=== PATIENT | female | born 1930 | race Native Hawaiian/Other Pacific Islander ===

== ENCOUNTER 2019-04-11 08:50 | Emergency (ER) | payer OTHER ==
[~2019-04-11] VITALS: Ht 162.6 cm; Wt 66.2 kg
[2019-04-11 08:59] VITALS: BP 195/92; TEMP 98.1
== END 2019-04-11 11:15 | disposition home health service (06) ==
LOC: ED 08:50
DX: S02.2XXA Fracture of nasal bones, initial encounter for closed fracture (principal); S09.8XXA Other specified injuries of head, initial encounter; S83.8X1A Sprain of other specified parts of right knee, initial encounter; S63.591A Other specified sprain of right wrist, initial encounter; W01.0XXA Fall on same level from slipping, tripping and stumbling without subsequent striking against object, initial encounter; Y92.89 Other specified places as the place of occurrence of the external cause
CPT/HCPCS: 96372; 99283; J1885; J7040

== ENCOUNTER 2019-08-07 14:37 | Outpatient (CLI) | payer OTHER ==
[2019-08-07 14:49] LABS: PLATELET COUNT 226 K/uL (152-353)
== END 2019-08-07 19:10 | disposition home or self-care (01) ==
LOC: LAB 14:37
PROVIDERS: Nurse Practitioner Family
DX: Z00.00 Encounter for general adult medical examination without abnormal findings (principal); I10 Essential (primary) hypertension; E55.9 Vitamin D deficiency, unspecified; L71.8 Other rosacea; Z79.899 Other long term (current) drug therapy; R53.83 Other fatigue; R53.81 Other malaise
CPT/HCPCS: 80053; 80061; 82306; 83036; 84439; 84443; 84481; 85027

== ENCOUNTER 2019-08-31 16:47 | Observation (INO) | payer OTHER ==
[2019-08-31] VITALS (8 sets, daily range): BP systolic 171–187; BP diastolic 54–78; TEMP 98.2–98.6; Ht 157.5 cm; Wt 65.4 kg
[~2019-08-31] VITALS: Ht 157.5 cm; Wt 65.4 kg
[2019-08-31 17:36] LABS: PLATELET COUNT 252 K/uL (152-353)
[2019-08-31 17:44] LABS: POTASSIUM 3.8 mmol/L (3.6-5.2)
[2019-08-31 17:53] LABS: PARTIAL THROMBOPLASTIN TIME 22.7 SECONDS (24.5-33.6)
[2019-09-01] VITALS: BP 147/89; TEMP 98.9
[2019-09-01 04:00] VITALS: BP 172/80; TEMP 97.9
[2019-09-01 08:07] VITALS: BP 152/48; TEMP 97.4
== END 2019-09-01 10:55 | disposition home or self-care (01) ==
LOC: ED 16:51 → MED/SURG 19:50
PROVIDERS: Family Medicine; ADMIT Internal Medicine Endocrinology, Diabetes & Metabolism
DX: G45.8 Other transient cerebral ischemic attacks and related syndromes (principal); R53.1 Weakness; R47.81 Slurred speech; I10 Essential (primary) hypertension; M79.609 Pain in unspecified limb
CPT/HCPCS: 80053; 81000; 85027; 85610; 85730; 93005; 99220; 99283; G0378; J1650

== ENCOUNTER 2020-01-26 22:57 | Emergency (ER) | payer OTHER ==
[~2020-01-26] VITALS: Ht 157.5 cm; Wt 65.3 kg
[2020-01-27 03:32] VITALS: BP 164/57; TEMP 98.4
== END 2020-01-27 03:39 | disposition short-term general hospital (02) ==
LOC: ED 22:57
DX: S72.012A Unspecified intracapsular fracture of left femur, initial encounter for closed fracture (principal); W18.39XA Other fall on same level, initial encounter; Y92.098 Other place in other non-institutional residence as the place of occurrence of the external cause
CPT/HCPCS: 96365; 96374; 96375; 99285; J1170

== ENCOUNTER 2020-04-03 19:50 | Emergency (ER) | payer OTHER ==
[~2020-04-03] VITALS: Ht 157.5 cm; Wt 61.2 kg
[2020-04-03 21:56] VITALS: BP 151/76; TEMP 98.1
== END 2020-04-03 21:57 | disposition home or self-care (01) ==
LOC: ED 19:50
DX: S60.222A Contusion of left hand, initial encounter (principal); S60.212A Contusion of left wrist, initial encounter; S50.12XA Contusion of left forearm, initial encounter; S60.221A Contusion of right hand, initial encounter; S60.512A Abrasion of left hand, initial encounter; S60.812A Abrasion of left wrist, initial encounter; S50.812A Abrasion of left forearm, initial encounter; S60.511A Abrasion of right hand, initial encounter; S00.83XA Contusion of other part of head, initial encounter; S00.81XA Abrasion of other part of head, initial encounter; S09.8XXA Other specified injuries of head, initial encounter; W01.198A Fall on same level from slipping, tripping and stumbling with subsequent striking against other object, initial encounter; Y92.098 Other place in other non-institutional residence as the place of occurrence of the external cause
CPT/HCPCS: 90471; 90715; 96365; 96375; 99284; J0690; J2270; J2405; J7040

== ENCOUNTER 2021-02-09 18:44 | Emergency (ER) | payer OTHER ==
[~2021-02-09] VITALS: Ht 157.5 cm; Wt 60.3 kg
[2021-02-09 20:56] VITALS: BP 155/93; TEMP 98.5
== END 2021-02-09 20:56 | disposition home or self-care (01) ==
LOC: ED 18:44
PROC: 0CQ00ZZ Repair Upper Lip, Open Approach (ICD-10-PCS; principal; 2021-02-09)
DX: S01.511A Laceration without foreign body of lip, initial encounter (principal); S00.83XA Contusion of other part of head, initial encounter; W01.198A Fall on same level from slipping, tripping and stumbling with subsequent striking against other object, initial encounter; Y92.098 Other place in other non-institutional residence as the place of occurrence of the external cause
CPT/HCPCS: 90471; 90715; 96372; 99283; 99284; J2001

== ENCOUNTER 2021-02-17 17:12 | Emergency (ER) | payer OTHER ==
[~2021-02-17] VITALS: Ht 157.5 cm; Wt 60.3 kg
[2021-02-17 17:50] VITALS: BP 161/69; TEMP 97.8
== END 2021-02-17 17:50 | disposition home or self-care (01) ==
LOC: ED 17:12
DX: Z48.02 Encounter for removal of sutures (principal)

== ENCOUNTER 2021-02-18 15:12 | Outpatient (CLI) | payer OTHER | END 2021-02-18 19:32 | disposition home or self-care (01) | LOC: RAD 15:12 | PROVIDERS: ATTEND Internal Medicine | DX: M25.532 Pain in left wrist (principal); R60.0 Localized edema ==

== ENCOUNTER 2021-05-06 18:44 | Emergency (ER) | payer OTHER ==
[~2021-05-06] VITALS: Ht 157.5 cm; Wt 60.3 kg
[2021-05-06 19:15] LABS: PLATELET COUNT 251 K/uL (152-353)
[2021-05-06 19:25] LABS: POTASSIUM 3.4 mmol/L (3.6-5.2)
[2021-05-06 19:34] LABS: PARTIAL THROMBOPLASTIN TIME 24.3 SECONDS (24.5-33.6)
[2021-05-06 21:45] VITALS: BP 140/70; TEMP 97.8
== END 2021-05-06 21:45 | disposition short-term general hospital (02) ==
LOC: ED 18:44
PROVIDERS: Hospitalist
PROC: 0T9B70Z Drainage of Bladder with Drainage Device, Via Natural or Artificial Opening (ICD-10-PCS; principal; 2021-05-06)
DX: S09.8XXA Other specified injuries of head, initial encounter (principal); S06.0X0A Concussion without loss of consciousness, initial encounter; S00.83XA Contusion of other part of head, initial encounter; S01.81XA Laceration without foreign body of other part of head, initial encounter; S32.592A Other specified fracture of left pubis, initial encounter for closed fracture; K44.9 Diaphragmatic hernia without obstruction or gangrene; R56.9 Unspecified convulsions; Z11.52 Encounter for screening for COVID-19; W01.198A Fall on same level from slipping, tripping and stumbling with subsequent striking against other object, initial encounter; Y92.512 Supermarket, store or market as the place of occurrence of the external cause
CPT/HCPCS: 36415; 51702; 80053; 80320; 81000; 82948; 85027; 85610; 85730; 87635; 93005; 96360; 96361; 96365; 96366; 99285; J0690; J2060; J2405; U0003

== ENCOUNTER 2021-07-07 15:26 | Emergency (ER) | payer OTHER ==
[~2021-07-07] VITALS: Ht 157.5 cm; Wt 55.8 kg
[2021-07-07 21:15] VITALS: BP 134/73; TEMP 97.2
== END 2021-07-07 21:15 | disposition home or self-care (01) ==
LOC: ED 15:26
DX: S51.812A Laceration without foreign body of left forearm, initial encounter (principal); W18.39XA Other fall on same level, initial encounter; Y93.01 Activity, walking, marching and hiking; Y92.098 Other place in other non-institutional residence as the place of occurrence of the external cause
CPT/HCPCS: 99283

== ENCOUNTER 2021-09-14 17:09 | Emergency (ER) | payer OTHER ==
[~2021-09-14] VITALS: Ht 157.5 cm; Wt 55.8 kg
[2021-09-14 17:43] LABS: PLATELET COUNT 257 K/uL (152-353)
[2021-09-14 17:50] LABS: POTASSIUM 3.8 mmol/L (3.6-5.2)
[2021-09-14 20:01] VITALS: BP 167/70; TEMP 98
== END 2021-09-14 20:05 | disposition home or self-care (01) ==
LOC: ED 17:09
PROVIDERS: Emergency Medicine
DX: S00.83XA Contusion of other part of head, initial encounter (principal); S00.81XA Abrasion of other part of head, initial encounter; W01.198A Fall on same level from slipping, tripping and stumbling with subsequent striking against other object, initial encounter; Y92.096 Garden or yard of other non-institutional residence as the place of occurrence of the external cause
CPT/HCPCS: 80053; 85027; 85610; 99283